=== PATIENT | female | born 1980 | race Two or more races ===

== ENCOUNTER 2017-06-23 15:06 | Outpatient (CLI) | payer MEDICAID | END 2017-06-23 16:11 | disposition home or self-care (01) | LOC: LC 15:06 | PROVIDERS: ATTEND Obstetrics & Gynecology Gynecology | PROC: 4A1HXCZ Monitoring of Products of Conception, Cardiac Rate, External Approach (ICD-10-PCS; principal; 2017-06-23) | DX: O09.523 Supervision of elderly multigravida, third trimester (principal); Z3A.34 34 weeks gestation of pregnancy | CPT/HCPCS: 59025 ==

== ENCOUNTER 2017-07-22 05:02 | Inpatient (IN) | payer MEDICAID ==
[2017-07-21 13:35] LABS: APPEARANCE,URINE CLEAR; BILIRUBIN,URINE NEGATIVE (NEGATIVE); COLOR,URINE STRAW; GLUCOSE, URINE NEGATIVE (NEGATIVE); KETONES,URINE NEGATIVE (NEGATIVE); LEUKOCYTE ESTERASE,URINE NEGATIVE (NEGATIVE); NITRITE,URINE NEGATIVE (NEGATIVE); PROTEIN,URINE NEGATIVE (NEGATIVE); URINE SPECIFIC GRAVITY 1.003; UROBILINOGEN,URINE NEGATIVE mg/dL (<2.0)
[2017-07-21 13:41] LABS: HEMATOCRIT 37.3 % (36.0-47.0); HEMOGLOBIN 12.8 g/dL (12.0-15.5); MEAN CORPUSCULAR HEMOGLOBIN 31.1 pg (27.0-33.4); MEAN CORPUSCULAR HGB CONC 34.2 g/dL (32.0-36.0); MEAN CORPUSCULAR VOLUME 91 fl (80-97); PLATELET COUNT 233 10^3/uL (150-450); RED BLOOD COUNT 4.11 10^6/uL (3.72-5.28); RED CELL DISTRIBUTION WIDTH 14.6 % (11.5-14.0)
[2017-07-21 14:16] LABS: URINE AMPHETAMINES SCREEN NEGATIVE; URINE BARBITURATES SCREEN NEGATIVE; URINE BENZODIAZEPINES SCREEN NEGATIVE; URINE COCAINE SCREEN NEGATIVE; URINE MARIJUANA (THC) SCREEN NEGATIVE; URINE METHADONE SCREEN NEGATIVE; URINE PHENCYCLIDINE SCREEN NEGATIVE
[~2017-07-22 05:02] MED LIST: CEFAZOLIN SODIUM 2 GM in NORMAL SALINE 100 ML IV PRN; LACTATED RINGERS 1000 ML IV PRN; LIDOCAINE 0.5% INJ-PF (5 MG/ML) 50 ML SDV SUBCUT PRN; RINGERS SOLUTION,LACTATED 1,000 ML IV PRN
[2017-07-22] MEDS: CEFAZOLIN 2 GM/D5W RTU 2 GM/50 ML RTUPB IV PRN ×2 (06:25→12:03)
[2017-07-22] MEDS ORDERED: TETRACAINE HCL/PF 20MG/2ML AMPULE (SPINAL) ONE (07:36)
[2017-07-22] MEDS ORDERED: MIDAZOLAM 2 MG/2 ML INJ ONE (07:37)
[2017-07-22] MEDS ORDERED: FENTANYL CITRATE INJ/PF 100 MCG/2 ML AMPUL ONE (07:37)
[2017-07-22] MEDS ORDERED: OXYTOCIN 10 UNIT/ML VIAL ONE (07:37)
[2017-07-22] MEDS ORDERED: LIDOCAINE 2% INJ-PF (20 MG/ML) 10 ML AMPUL ONE (07:37)
[2017-07-22] MEDS ORDERED: EPHEDRINE SULFATE INJ 50 MG/1 ML AMPULE ONE (07:38)
[2017-07-22] MEDS ORDERED: ONDANSETRON HCL INJ/PF 4 MG/2 ML SDV ONE (07:38)
[2017-07-22] MEDS ORDERED: SIMETHICONE 80 MG TAB.CHEW PO PRN (08:04)
[2017-07-22] MEDS ORDERED: ACETAMINOPHEN 1,000 MG/100 ML RTUPB IV PRN (08:04)
[2017-07-22] MEDS ORDERED: OXYTOCIN/NORMAL SALINE 20 UNIT/1,000 ML RTUINJ IV PRN (08:04)
[2017-07-22] MEDS ORDERED: PROMETHAZINE HCL INJ 25 MG/1 ML VIAL IV PRN ×3 (08:04→08:47)
[2017-07-22] MEDS ORDERED: ACETAMINOPHEN 325 MG TABLET PO PRN (08:04)
[2017-07-22] MEDS ORDERED: OXYCODONE-ACETAMINOPHEN 5-325 MG TABLET PO PRN ×3 (08:04→08:47)
[2017-07-22] MEDS ORDERED: RINGERS SOLUTION,LACTATED 1,000 ML IV PRN (08:04)
[2017-07-22] MEDS ORDERED: DIPH/PERTUSS(ACELL)/TETANUS VAC/PF 0.5 ML SYR (>=10YO) IM PRN (08:04)
[2017-07-22] MEDS ORDERED: MEASLES,MUMPS&RUBELLA VACC/PF 0.5 ML VIAL SUBCUT PRN (08:04)
[2017-07-22] MEDS ORDERED: FENTANYL CITRATE INJ/PF 100 MCG/2 ML AMPUL IV PRN ×3 (08:47)
[2017-07-22] MEDS ORDERED: MORPHINE SULFATE 10 MG/ML INJ IV PRN (08:47)
[2017-07-22] MEDS ORDERED: DIPHENHYDRAMINE HCL 50 MG/ML VIAL IV PRN (08:47)
[2017-07-22] MEDS ORDERED: MEPERIDINE HCL/PF INJ 25 MG/1 ML DISP.SYRIN IV PRN (08:47)
--- NOTE | 2017-07-22 09:50 | Operative Report ---
Operative Report DATE OF SURGERY: 07/22/17 PREOPERATIVE DIAGNOSIS: bladder injury, laceration at the dome POSTOPERATIVE DIAGNOSIS: same OPERATION: repair of bladder injury, insertion of suprapubic catheter SURGEON: DAVIE JOHNS ANESTHESIA: Spinal TISSUE REMOVED OR ALTERED: none COMPLICATIONS: none INTRAOPERATIVE FINDINGS: laceration at the dome of the bladder PROCEDURE: I was called to the operating room for bladder laceration at the dome. Inspected the bladder from inside mucosa was clear no injuries. Both orifices I then identified with clear reflux from each 1. The catheter was in. Started closing the dome of the bladder with 0 chromic continuous locking sutures. Before we finished we inserted a suprapubic catheter and a separate wound incision #20 F regular Millan. After that we instilled injected 200 cc of saline into the bladder and there was no evidence of any leak. No blood return were clear. We answered we started the second row of sutures interrupted 0 Vicryl for the line of sutures. After that the surgeon took over to complete his procedure.
[2017-07-22] MEDS ORDERED: BUPIVACAINE INJ/PF LIPOSOME/PF 266 MG/20 ML SDV ONE (09:55)
[2017-07-22] MEDS ORDERED: MORPHINE SULFATE 10 MG/ML INJ ONE (10:20)
--- NOTE | 2017-07-22 10:31 | Operative Report ---
Nonrecallable Operative Report DATE OF SURGERY: 07/22/17 PREOPERATIVE DIAGNOSIS: Patient desires repeat to prevent risk of uterine rupture POSTOPERATIVE DIAGNOSIS: Same plus incidental cystotomy OPERATION: Repeat via low versus transverse uterine incision and cystotomy repair SURGEON: SYDNEY TRUONG TISSUE REMOVED OR ALTERED: Placenta COMPLICATIONS: Incidental cystotomy ESTIMATED BLOOD LOSS: 700 cc INTRAOPERATIVE FINDINGS: Viable male infant crying at delivery, normal uterus tubes ovaries PROCEDURE: Patient was taken to the OR and placed in supine position after her spinal anesthesia. She is prepared and draped in sterile fashion. Millan was placed for drainage of the bladder. Low transverse incision was made and carried down the level of the fascia. The fascial incision was made with knife and extended bilaterally with curved Rivera scissors. The fascia was off the rectus muscles using sharp and blunt dissection. The rectus muscles are in the midline. The peritoneum was entered without incident. Bladder blade was placed in uterine segment was identified. A low transverse incision was made creating a bladder flap. Bladder blade was placed low transverse uterine incision was made with the knife and extended with fingertips. The baby was delivered with some fundal pressure in the assistance of a Kiwi vacuum with one pull with the pressure in the green. Mouth and nose were suctioned free. The cord is doubly clamped and cut. Baby is passed off to the payroll consultant in attendance. The placenta was manually extracted with trailing membranes. The uterus was externalized wrapped in a moist lap sponge. Uterine contents wiped free. Uterus was closed with a running locking layer of 0 chromic suture using the second layer to imbricate the first completing a double layer closure of the uterus. The serosa was closed with a running 2-0 chromic stitch. At this point anesthesia noted some blood in the Millan catheter. Examination of the bladder showed a cystotomy into the dome. I am uncertain when this occurred however I suspect it was with stretching of the peritoneal incision or delivery of the head with an avulsion injury to the dome of the bladder. Urology was called to assist in repair of the bladder. Please see the separate dictated note by urology. The cystotomy was repaired and a suprapubic catheter was placed. He asked that we continue bladder drainage for 3 weeks prior to removing the suprapubic catheter. The pelvis was irrigated and suctioned free of fluid the uterus was replaced in the abdomen. The abdominal wall peritoneum was closed with running 2-0 chromic stitch. Fascia was closed with a running 0 Vicryl in 2 segments. Susan's layer was brought together with 0 plain gut stitch and the skin was closed with running subcuticular 4-0 undyed Vicryl stitch. Subcutaneous lidocaine was injected at the incision to assist with pain control. The wound was dressed mother and baby did well.
--- NOTE | 2017-07-22 10:37 | PDOC DELIVERY SUMMARY ---
Delivery Summary - Maternal Hx : III Hx # Term Pregnancies: 2 Hx Total # of Abortions (Sponateous & Elective): 1 SOO: 07/29/17 Gestational Age: 39 Ruptured Membranes: AROM Fluids: Clear - Delivery Presentation: Vertex Heart Rate Monitoring: Done Pre-Operatively Support Person Present: Yes Location: OR : Scheduled Placenta: Within Normal Limits Delivery of Placenta Date: 07/22/17 Delivery of Placenta Time: 08:23 - Medications Type of Anesthesia:: Spinal - Assess and Care Baby 1 Male Delivery of Infant Date: 07/22/17 Delivery of Infant Time: 08:22 at 1 minute: 8 at 5 minutes: 9 Preprinted Number On Band: [id number] Skin to Skin: Yes Skin to Skin (Mins): 5 To Nursery At: 08:32 Mode of Transport: Bassinet Delivery Weight: 3,490 Infant Delivery Length: 21 in - Delivery Personnel Cleaning Matron: SILVANO JAQUEZ RN: NGA BALDERRAMA RN: MAUREEN ESPINAL RN: LIANG LLAMAS MD: SYDNEY TRUONG
[2017-07-22] MEDS ORDERED: OXYTOCIN/NORMAL SALINE 20 UNIT/1,000 ML RTUINJ ONE (10:55)
[2017-07-22] MEDS ORDERED: ACETAMINOPHEN 1,000 MG/100 ML RTUPB IV ONE (11:57)
[2017-07-22] MEDS: DOCUSATE SODIUM 100 MG CAPSULE PO SCH ×2 (12:03→18:16)
[2017-07-22] MEDS: PRENATAL VITAMIN W DHA CAPSULE PO SCH (12:03)
[2017-07-22] MEDS: KETOROLAC TROMETHAMINE INJ/PF 30 MG/1 ML SDV IV SCH ×2 (12:03→18:16)
[2017-07-22] MEDS: HYDROMORPHONE HCL INJ/PF 2 MG/ML AMPULE IV PRN (13:49)
[2017-07-22] MEDS: OXYCODONE-ACETAMINOPHEN 5-325 MG TABLET PO PRN (16:46)
[2017-07-23] MEDS: KETOROLAC TROMETHAMINE INJ/PF 30 MG/1 ML SDV IV SCH (01:51)
[2017-07-23] MEDS: HYDROMORPHONE HCL INJ/PF 2 MG/ML AMPULE IV PRN (02:45)
[2017-07-23] MEDS: OXYCODONE-ACETAMINOPHEN 5-325 MG TABLET PO PRN ×4 (05:21→23:13)
[2017-07-23 06:40] LABS: HEMATOCRIT 27.5 % (36.0-47.0); MEAN CORPUSCULAR HEMOGLOBIN 31.4 pg (27.0-33.4); MEAN CORPUSCULAR HGB CONC 34.1 g/dL (32.0-36.0); MEAN CORPUSCULAR VOLUME 92 fl (80-97); PLATELET COUNT 186 10^3/uL (150-450); RED BLOOD COUNT 2.97 10^6/uL (3.72-5.28); RED CELL DISTRIBUTION WIDTH 14.3 % (11.5-14.0)
[2017-07-23 06:44] LABS: WHITE BLOOD COUNT 12.1 10^3/uL (4.0-10.5)
[2017-07-23 06:45] LABS: HEMOGLOBIN 9.3 g/dL (12.0-15.5)
--- NOTE | 2017-07-23 09:21 | PDOC PROGRESS REPORT ---
Subjective-OB Progress Note for:: 07/23/17 Subjective: Day #1 s/p repeat c/s Denies concerns, states lochia is stable, pain well controlled, may draining bloody urine, still in bed resting. Physical Exam (OB) Vital Signs: Temp Pulse Resp BP Pulse Ox 98.6 F 81 18 100/57 L 99 07/23/17 07:00 07/23/17 07:00 07/23/17 07:00 07/23/17 07:00 07/23/17 07:00 Intake & Output 07/22/17 07/23/17 07/24/17 06:59 06:59 06:59 Intake Total 3265 Output Total 700 3350 Balance -700 -85 Weight 71.67 kg - PIH/Pre-Eclampsia DTR's: 2 + Clonus: Negative Headache: Absent Epigastric Pain: No Visual Changes: No - Dressing Removed: No Incision: Dressing, Well Approximated Closure Type: Surgical Glue - Lochia Lochia Amount: Scant < 10 ml Lochia Color: Rubra/Red - Abdomen Description: Soft, Round Hernia Present: No Fundal Description: Firm, Midline Fundal Height: u/u - u/2 Objective-Diagnostic Laboratory: 07/23/17 06:18 07/21/17 07/23/17 12:30 06:18 WBC 12.1 H D RBC 2.97 L Hgb 9.3 L D Hct 27.5 L MCV 92 MCH 31.4 MCHC 34.1 RDW 14.3 H Plt Count 186 Blood Type A POSITIVE Antibody Screen POSITIVE Assessment and Plan(PN) - Assessment and Plan (1) Status post repeat low transverse section Is this a current diagnosis for this admission?: Yes Plan: routine postop care (2) Bladder injury Qualifiers: Encounter type: initial encounter Qualified Code(s): S37.20XA - Unspecified injury of bladder, initial encounter Is this a current diagnosis for this admission?: Yes Plan: suprapubic to remain in for 3 weeks may in until clear urine draining (3) Acute blood loss anemia Is this a current diagnosis for this admission?: Yes Plan: ferrous sulfate increase dietary iron - Time Spent with Patient Time with patient: Less than 15 minutes Critical Time spent with patient: Less than 15 minutes Medications reviewed and adjusted accordingly: Yes - Disposition Anticipated Discharge: Home Within: within 24 hours
[2017-07-23] MEDS: IBUPROFEN 800 MG TABLET PO SCH ×3 (09:22→21:08)
[2017-07-23] MEDS: DOCUSATE SODIUM 100 MG CAPSULE PO SCH ×2 (09:23→17:36)
[2017-07-23] MEDS: PRENATAL VITAMIN W DHA CAPSULE PO SCH (09:23)
[2017-07-24] MEDS: IBUPROFEN 800 MG TABLET PO SCH ×4 (03:46→21:12)
[2017-07-24] MEDS: OXYCODONE-ACETAMINOPHEN 5-325 MG TABLET PO PRN ×3 (08:02→18:59)
--- NOTE | 2017-07-24 09:32 | PDOC PROGRESS REPORT ---
Subjective-OB Progress Note for:: 07/24/17 Subjective: day #2 s/p r c/s with bladder injury doing well, lochia is stable, pain moderately well controlled, suprapubic cath in place draining well. Tolerating diet, passing gas Physical Exam (OB) Vital Signs: Temp Pulse Resp BP Pulse Ox 97.7 F 101 H 18 112/73 97 07/24/17 07:15 07/24/17 07:15 07/24/17 07:15 07/24/17 07:15 07/24/17 07:15 Intake & Output 07/23/17 07/24/17 07/25/17 06:59 06:59 06:59 Intake Total 3265 Output Total 3350 4750 Balance -85 -4750 - PIH/Pre-Eclampsia DTR's: 2 + Clonus: Negative Headache: Absent Epigastric Pain: No Visual Changes: No - Dressing Removed: No - Opsite; drainage outlined Incision: Dressing Closure Type: Surgical Glue - Lochia Lochia Amount: Scant < 10 ml Lochia Color: Rubra/Red - Abdomen Description: Tender, Soft, Round Hernia Present: No Fundal Description: Firm, Midline Fundal Height: u/u - u/2 Objective-Diagnostic Laboratory: 07/23/17 06:18 Assessment and Plan(PN) - Assessment and Plan (1) Status post repeat low transverse section Is this a current diagnosis for this admission?: Yes Plan: routine care (2) Bladder injury Qualifiers: Encounter type: initial encounter Qualified Code(s): S37.20XA - Unspecified injury of bladder, initial encounter Is this a current diagnosis for this admission?: Yes Plan: keep suprapubic cath in place (3) Acute blood loss anemia Is this a current diagnosis for this admission?: Yes Plan: ferrous sulfate increase dietary iron - Time Spent with Patient Time with patient: Less than 15 minutes Critical Time spent with patient: Less than 15 minutes Medications reviewed and adjusted accordingly: Yes - Disposition Anticipated Discharge: Home Within: within 24 hours
[2017-07-24] MEDS: PRENATAL VITAMIN W DHA CAPSULE PO SCH (09:53)
[2017-07-24] MEDS: DOCUSATE SODIUM 100 MG CAPSULE PO SCH ×2 (09:54→17:29)
[2017-07-25] MEDS: IBUPROFEN 800 MG TABLET PO SCH ×2 (03:42→09:44)
--- NOTE | 2017-07-25 08:24 | PDOC DISCHARGE SUMMARY ---
Final Diagnosis Discharge Date: 07/25/17 - Final Diagnosis (1) Status post repeat low transverse section Is this a current diagnosis for this admission?: Yes (2) Bladder injury Is this a current diagnosis for this admission?: Yes (3) Acute blood loss anemia Is this a current diagnosis for this admission?: Yes Discharge Data - Discharge Medication Prescriptions: Oxycodone HCl/Acetaminophen [Percocet 5-325 mg Tablet] 2 tab PO Q4HP PRN #30 tablet PRN Reason: Docusate Sodium [Colace 100 mg Capsule] 100 mg PO BID #60 capsule Ferrous Sulfate 325 mg PO BID #60 tablet Ibuprofen [Motrin 800 mg Tablet] 800 mg PO Q6A #60 tablet Home Medications: Pnv No.95/Ferrous Fum/Folic AC [ Vitamins Tablet] 1 each PO DAILY Docusate Sodium [Colace 100 mg Capsule] 100 mg PO BID #60 capsule 07/25/17 Ferrous Sulfate 325 mg PO BID #60 tablet 07/25/17 Ibuprofen [Motrin 800 mg Tablet] 800 mg PO Q6A #60 tablet 07/25/17 Oxycodone HCl/Acetaminophen [Percocet 5-325 mg Tablet] 2 tab PO Q4HP PRN #30 tablet 07/25/17 Gestational Age: 39 Reason(s) for Admission: Ceasarean Section-Repeat Procedures: NST Intrapartum Procedure(s): : Low Cervical, Transverse - [place] Data Baby 1 Male at 1 minute: 8 at 5 minutes: 9 Weight: 3490 kg Home with Mother: Yes Complications: No - Diagnosis Test Laboratory: Temp Pulse Resp BP Pulse Ox 98.3 F 78 18 111/76 96 07/25/17 07:27 07/25/17 07:27 07/25/17 07:27 07/25/17 07:27 07/25/17 07:27 07/21/17 07/21/17 07/23/17 11:17 12:30 06:18 RBC 4.11 2.97 L Hgb 12.8 9.3 L D Hct 37.3 27.5 L Urine Opiates Screen NEGATIVE - Discharge information/Instructions Discharge Activity: Activity As Tolerated, Pelvic Rest, No tub bath Discharge Diet: Regular Disposition: HOME, SELF-CARE Follow up with: [facility] in: 1, Weeks
[2017-07-25] MEDS: PRENATAL VITAMIN W DHA CAPSULE PO SCH (09:44)
[2017-07-25] MEDS: DOCUSATE SODIUM 100 MG CAPSULE PO SCH (09:44)
[2017-07-25 10:22] VITALS: BP 110/70
== END 2017-07-25 12:09 | disposition home or self-care (01) | DRG 765 ==
LOC: 2S 05:02
PROVIDERS: ADMIT Obstetrics & Gynecology; ATTEND Obstetrics & Gynecology
PROC: 0TQB0ZZ Repair Bladder, Open Approach (ICD-10-PCS; 2017-07-22)
PROC: 4A1HXCZ Monitoring of Products of Conception, Cardiac Rate, External Approach (ICD-10-PCS; 2017-07-22)
PROC: 0T9B70Z Drainage of Bladder with Drainage Device, Via Natural or Artificial Opening (ICD-10-PCS; 2017-07-22)
PROC: 10D00Z1 Extraction of Products of Conception, Low, Open Approach (ICD-10-PCS; principal; 2017-07-22 07:45)
DX: O34.211 Maternal care for low transverse scar from previous cesarean delivery (principal); O71.5 Other obstetric injury to pelvic organs; D62 Acute posthemorrhagic anemia; O99.02 Anemia complicating childbirth; Z3A.39 39 weeks gestation of pregnancy; Z98.891 History of uterine scar from previous surgery; Z37.0 Single live birth
CPT/HCPCS: 1961; 36415; 59025; 80307; 81001; 85027; 86850; 86870; 86900; 86901; 86902; 86920; 86922; 94799; C9290; J0131; J0690; J1170; J1885; J2250; J2270; J2405; J2590; J3010; J3490; J7120

== ENCOUNTER 2017-08-01 17:57 | Emergency (ER) | payer MEDICAID ==
--- NOTE | 2017-08-01 19:11 | ER Document Report ---
ED Medical Screen (RME) - General Chief Complaint: Blood in Catheter Stated Complaint: PROBLEM WITH CATHETER Time Seen by Provider: 08/01/17 19:01 Mode of Arrival: Ambulatory Information source: Patient Notes: 36-year-old female with no reported past medical history presents with concern for blood-tinged urine from her suprapubic catheter. Patient delivered 2017 via . Patient sustained a bladder injury at that time which required a suprapubic catheter. Patient's states that she has had no problems until today when she noticed a discoloration of her urine. Patient denies any fever, chills, nausea, vomiting. She states she does have some burning around the catheter site. She denies any purulent discharge. She denies any trauma to the area. I have greeted and performed a rapid initial assessment of this patient. A comprehensive ED assessment and evaluation of the patient including analysis of labs and imaging ( if obtained) and completion of medical decision making will be conducted by an additional ED provider. PHYSICAL EXAMINATION: GENERAL: Well-appearing, well-nourished and in no acute distress. HEAD: Atraumatic, normocephalic. EYES: Pupils equal round extraocular movements intact, conjunctiva are normal. ENT: Nares patent NECK: Normal range of motion LUNGS: No respiratory distress Musculoskeletal: Normal range of motion NEUROLOGICAL: Normal speech, normal gait. PSYCH: Normal mood, normal affect. SKIN: Warm, Dry, normal turgor, no rashes or lesions noted. TRAVEL OUTSIDE OF THE [place] IN LAST 30 DAYS: No - Related Data Allergies/Adverse Reactions: No Known Allergies Allergy (Verified 07/21/17 12:10) Past Medical History - Social History Chew tobacco use (# tins/day): No Frequency of alcohol use: None Drug Abuse: None Renal/ Medical History: Denies: Hx Peritoneal Dialysis Physical Exam - Vital signs Vitals: Temp Pulse Resp BP Pulse Ox 98.1 F 68 20 146/85 H 98 08/01/17 18:20 08/01/17 18:20 08/01/17 18:20 08/01/17 18:20 08/01/17 18:20 Course - Vital Signs Vital signs: Temp Pulse Resp BP Pulse Ox 98.1 F 68 20 146/85 H 98 08/01/17 18:20 08/01/17 18:20 08/01/17 18:20 08/01/17 18:20 08/01/17 18:20 Doctor's Discharge - Discharge Referrals: DEVENDRA APODACA MD [Primary Care Provider] - Follow up as needed
[2017-08-01 19:59] LABS: APPEARANCE,URINE CLOUDY; BILIRUBIN,URINE NEGATIVE (NEGATIVE); COLOR,URINE PINK; GLUCOSE, URINE NEGATIVE (NEGATIVE); KETONES,URINE NEGATIVE (NEGATIVE); LEUKOCYTE ESTERASE,URINE LARGE (NEGATIVE); NITRITE,URINE NEGATIVE (NEGATIVE); PROTEIN,URINE 30 mg/dL (NEGATIVE); URINE SPECIFIC GRAVITY 1.005; UROBILINOGEN,URINE NEGATIVE mg/dL (<2.0)
[2017-08-01] MEDS ORDERED: CEPHALEXIN 500 MG CAPSULE PO ONE (20:29)
--- NOTE | 2017-08-01 20:31 | ER Document Report ---
ED General - General Chief Complaint: Blood in Catheter Stated Complaint: PROBLEM WITH CATHETER Time Seen by Provider: 08/01/17 19:01 Mode of Arrival: Ambulatory Notes: The patient is a 36 year old female with a history of a bladder injury during a several weeks ago now with an indwelling suprapubic catheter who presents with blood in her urine. The patient states that this started earlier today but has now resolved. No history of similar symptoms since his suprapubic catheter was placed. She denies any associated abdominal pain, nausea, vomiting, fever or constitutional symptoms. She has not contacted her distance learning administrator or urologist regarding today's concerns. Nothing is been noted to improve or worsen her symptoms. TRAVEL OUTSIDE OF THE [place] IN LAST 30 DAYS: No - Related Data Allergies/Adverse Reactions: No Known Allergies Allergy (Verified 07/21/17 12:10) Past Medical History - General Information source: Patient - Social History Smoking Status: Never Smoker Chew tobacco use (# tins/day): No Frequency of alcohol use: None Drug Abuse: None Lives with: Spouse/Significant other Family History: Reviewed & Not Pertinent Patient has suicidal ideation: No Patient has homicidal ideation: No Renal/ Medical History: Denies: Hx Peritoneal Dialysis Review of Systems - Review of Systems Notes: Constitutional: Negative for fever. HENT: Negative for sore throat. Eyes: Negative for visual changes. Cardiovascular: Negative for chest pain. Respiratory: Negative for shortness of breath. Gastrointestinal: Negative for abdominal pain, vomiting or diarrhea. Genitourinary: Positive for hematuria Musculoskeletal: Negative for back pain. Skin: Negative for rash. Neurological: Negative for headaches, weakness or numbness. 10 point ROS negative except as marked above and in HPI. Physical Exam - Vital signs Vitals: Temp Pulse Resp BP Pulse Ox 98.1 F 68 20 146/85 H 98 08/01/17 18:20 08/01/17 18:20 08/01/17 18:20 08/01/17 18:20 08/01/17 18:20 Interpretation: Hypertensive Notes: PHYSICAL EXAMINATION: GENERAL: Well-appearing, well-nourished and in no acute distress. HEAD: Atraumatic, normocephalic. EYES: Pupils equal round and reactive to light, extraocular movements intact, sclera anicteric, conjunctiva are normal. ENT: nares patent, oropharynx clear without exudates. Moist mucous membranes. NECK: Normal range of motion, supple without lymphadenopathy LUNGS: Breath sounds clear to auscultation bilaterally and equal. No wheezes rales or rhonchi. HEART: Regular rate and rhythm without murmurs ABDOMEN: Soft, nontender, normoactive bowel sounds. No guarding, no rebound. No masses appreciated. EXTREMITIES: Normal range of motion, no pitting or edema. No cyanosis. NEUROLOGICAL: No focal neurological deficits. Moves all extremities spontaneously and on command. PSYCH: Normal mood, normal affect. SKIN: Warm, Dry, normal turgor, suprapubic catheter site without any induration , bleeding or erythema Course - Re-evaluation Re-evalutation: 08/01/17 20:29 Patient presents with symptoms consistent with an acute cystitis with an associated suprapubic catheter. Vitals wnl. No history of fever, flank pain, or constitution symptoms to suggest ascending infection at this time. Patient did have hematuria in her catheter bag which has since resolved. Patient is well in appearance, tolerating oral intake without difficulty. No focal abdominal tenderness to suggest acute appendicitis, biliary pathology, acute pancreatitis , tubo-ovarian abscesses, or pelvic inflammatory disease. At this time will discharge with return precautions and follow-up recommendations. Verbal discharge instructions given a the bedside and opportunity for questions given. Medication warnings reviewed. Patient is in agreement with this plan and has verbalized understanding of return precautions and the need for primary care follow-up in the next 24-72 hours. - Vital Signs Vital signs: Temp Pulse Resp BP Pulse Ox 98.5 F 57 L 16 139/82 H 98 08/01/17 20:41 08/01/17 20:41 08/01/17 20:41 08/01/17 20:41 08/01/17 20:41 - Laboratory Laboratory results interpreted by me: 08/01/17 19:25 Urine Protein 30 H Urine Blood LARGE H Ur Leukocyte Esterase LARGE H Discharge - Discharge Clinical Impression: Catheter-associated urinary tract infection Qualifiers: Indwelling urinary catheter type: cystostomy catheter Encounter type: initial encounter Qualified Code(s): T83.510A - Infection and inflammatory reaction due to cystostomy catheter, initial encounter Condition: Good Disposition: HOME, SELF-CARE Additional Instructions: Your urine shows findings consistent with a urinary tract infection associated with your catheter. Please take all the antibiotics as directed even if your symptoms have improved. Please follow-up with your PARTS ROOM CLERK and/or urologist within the next 1-2 days regarding this catheter associated infection. Return to emergency room if you develop fever >101F, persistent vomiting, become lethargic, have severe pain in your sides, or any other symptoms that are concerning to you. Prescriptions: Cephalexin Monohydrate [Keflex 500 mg Capsule] 500 mg PO Q6H 7 Days capsule Referrals: DEVENDRA APODACA MD [Primary Care Provider] - Follow up tomorrow
[2017-08-01 20:42] VITALS: BP 139/82
== END 2017-08-01 20:43 | disposition home or self-care (01) ==
LOC: ER 17:57
DX: O90.9 Complication of the puerperium, unspecified (principal); T83.510A Infection and inflammatory reaction due to cystostomy catheter, initial encounter; R31.9 Hematuria, unspecified; X58.XXXA Exposure to other specified factors, initial encounter
CPT/HCPCS: 36415; 81001; 87086; 87088; 87186; 99283

== ENCOUNTER → 2017-08-06 | Outpatient (CLI) | payer MEDICAID ==
--- NOTE | 2017-08-06 13:11 | RADIOLOGY REPORT (SQ) ---
EXAM DESCRIPTION: CYSTOGRAM MINIMUM 3 VIEW COMPLETED DATE/TIME: 08/06/2017 10:57 am REASON FOR STUDY: ENCOUNTER FOR ATTENTION TO CYSTOSTOMY (Z43.5) Z43.5 ENCOUNTER FOR ATTENTION TO CY STOSTOMY COMPARISON: None. FLUOROSCOPY TIME: FLUORO TIME: 1 minutes 11 seconds 11 series of digital radiographic images saved to PACS. LIMITATIONS: None. PROCEDURE: Procedure explained to the patient who gave consent. Pre-existing suprapubic catheter wa s accessed, bladder filled with approximately 350 ml of non-ionic contrast via gravity drip. FINDINGS: There is a suprapubic catheter, entering the bladder from the left anterolateral aspect. No filling defects in the urinary bladder. Millan balloon is outlined by contrast. There is no reflux into the right or left distal ureter. No extravasation from the urinary bladder. Post drainage, minimal bladder residua is present. Remainder of the pelvis on fluoroscopy images is otherwise unremarkable. IMPRESSION: No leakage of contrast from the urinary bladder. Suprapubic catheter in good positionvanessa gMendez COMMENT: Quality ID [id number]: Final reports for procedures using fluoroscopy that document radiation exp osure indices, or exposure time and number of fluorographic images (if radiation exposure indices are not available) TECHNICAL DOCUMENTATION: JOB ID: [id number] [employer]- All Rights Reserved Reading location - IP/workstation name: [email or web address]
== END ==
LOC: RAD 10:07
PROVIDERS: ATTEND Obstetrics & Gynecology
DX: Z43.5 Encounter for attention to cystostomy (principal)
CPT/HCPCS: 74430